=== PATIENT | male | born 1975 | race African-American/Black ===

== ENCOUNTER 2017-07-10 09:05 | Observation (INO) | payer MEDICAID ==
[~2017-07-10] VITALS: Ht 177.8 cm; Wt 78.0 kg
[~2017-07-10 09:05] MED LIST: LISI-363 PO
[2017-07-10 09:15] VITALS: BP 142/90; PULSE 92; RESP 17; TEMP 98.7; O2SAT 99
[2017-07-10] MEDS ORDERED: LIDOCAINE HCL 1% 50 ML VIAL INFIL ONE (09:15)
[2017-07-10] MEDS ORDERED: BUPIVACAINE HCL PF 0.5% 10 ML VIAL INFIL ONE (09:15)
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
[2017-07-10 09:45] LABS: AUTOMATED NEUTROPHIL # 2.8 TH/MM3 (1.8-7.7); BASOPHIL % 0.3 % (0.0-2.0); EOSINOPHIL # 0.1 TH/MM3 (0-0.4); EOSINOPHIL % 0.7 % (0.0-4.0); HEMATOCRIT 46.8 % (39.0-51.0); HEMO FLAGS DIFF FINAL; LYMPH % 56.2 % (9.0-44.0); LYMPHOCYTE # 4.4 TH/MM3 (1.0-4.8); MEAN CELL VOLUME 85.1 FL (80.0-100.0); MEAN CORPUSCULAR HEMOGLOBIN 27.4 PG (27.0-34.0); MEAN CORPUSCULAR HGB CONC 32.2 % (32.0-36.0); MONO % 7.2 % (0.0-8.0); NEUT % 35.6 % (16.0-70.0); PLATELET COUNT 263 TH/MM3 (150-450); RED BLOOD COUNT 5.51 MIL/MM3 (4.50-5.90); WHITE BLOOD COUNT 7.8 TH/MM3 (4.0-11.0)
[2017-07-10] MEDS ORDERED: NS + KCL 20 MEQ INJ 1,000 ML IV SCH (10:00)
[2017-07-10] MEDS ORDERED: ONDANSETRON HCL 4 MG/2 ML VIAL IV PUSH ONE ×2 (10:00→12:00)
[2017-07-10] MEDS ORDERED: MORPHINE SULFATE 4 MG/ML INJ IV PUSH ONE (10:00)
[2017-07-10] MEDS ORDERED: GENTAMICIN 80 MG PREMIX 100 ML IV ONE (10:00)
[2017-07-10 10:01] LABS: BICARBONATE 23.7 MEQ/L (21.0-32.0); POTASSIUM 3.2 MEQ/L (3.5-5.1)
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
--- NOTE | 2017-07-10 10:29 | RADRPT ---
EXAM DATE/TIME: 07/10/2017 10:08 [facility] COMPARISON: FINGER RIGHT 4TH DIGIT (FIT2GTS), July 10, 2017, 9:32. INDICATIONS : Post reduction 4th finger. MEDICAL HISTORY : Open fracture 4th finger SURGICAL HISTORY : None. ENCOUNTER: Subsequent ACUITY: 1 day PAIN SCORE: 10/10 LOCATION: Right 4th finger FINDINGS: Alignment is anatomic in splint. Extensive swelling is evident. Fractures noted to be open. CONCLUSION: Anatomic alignment Chris Scott MD FACR on July 10, 2017 at 10:27 Board Certified Radiologist. This report was verified electronically.
[2017-07-10] MEDS ORDERED: ONDANSETRON HCL 4 MG/2 ML VIAL IVP PRN (11:00)
[2017-07-10] MEDS ORDERED: SODIUM CHLORIDE 0.9% FLUSH 10 ML FLUSH IV FLUSH PRN (11:00)
[2017-07-10] MEDS ORDERED: LACTULOSE SYRUP 20 GM/30 ML CUP PO PRN (11:00)
[2017-07-10] MEDS ORDERED: MAGNESIUM HYDROXIDE SUSP 30 ML CUP PO PRN (11:00)
[2017-07-10] MEDS ORDERED: MORPHINE SULFATE 4 MG/ML INJ IV PUSH PRN ×2 (11:00)
[2017-07-10] MEDS ORDERED: BISACODYL 10 MG SUPP RECTAL PRN (11:00)
[2017-07-10] MEDS ORDERED: ACETAMINOPHEN 325 MG TAB PO PRN ×2 (11:00)
[2017-07-10] MEDS ORDERED: NALOXONE HCL 0.4 MG/ML AMP IV PUSH PRN (11:00)
[2017-07-10] MEDS ORDERED: ACETAMINOPHEN/HYDROcodone 325 MG/5 MG TAB PO PRN (11:00)
[2017-07-10] MEDS ORDERED: HYDROmorphone HCL PF 1 MG/ML VIAL IV PUSH PRN (11:00)
[2017-07-10] MEDS ORDERED: SENNOSIDES 8.6 MG TAB PO PRN (11:00)
[2017-07-10 11:01] LABS: APTT (PATIENT) 25.9 SEC (24.3-30.1); PROTHROMBIN TIME - PATIENT 11.4 SEC (9.8-11.6)
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
[2017-07-10 11:30] VITALS: BP 120/78
[2017-07-10 11:36] VITALS: BP 136/75; PULSE 71; RESP 16; TEMP 98.6; O2SAT 95
[2017-07-10] MEDS ORDERED: LIDOCAINE HCL 1% PF 5 ML AMPULE OTHER ONE (12:00)
[2017-07-10] MEDS ORDERED: ceFAZolin INJ 1,000 MG VIAL IV ONE ×2 (12:00→16:55)
[2017-07-10] MEDS ORDERED: NEOMYCIN/POLYMYXIN 1 ML G.U. IRRIGANT IRRIGATION ONE (12:00)
[2017-07-10] MEDS ORDERED: PROPOFOL 200 MG/20 ML AMP IV ONE (12:00)
[2017-07-10] MEDS ORDERED: GLYCOPYRROLATE 1 MG/5 ML SYRINGE IV PUSH ONE (12:00)
[2017-07-10] MEDS ORDERED: DEXAMETHASONE SOD PHOS 4 MG/ML VIAL IV ONE (12:00)
[2017-07-10] MEDS ORDERED: ENALAPRILAT 1.25 MG/ML VIAL IV PUSH PRN (12:15)
[2017-07-10] MEDS: ACETAMINOPHEN/HYDROcodone 325 MG/7.5 MG TAB PO PRN (12:26)
[2017-07-10] MEDS: SODIUM CHLOR 0.45% 1000 ML INJ 1,000 ML IV SCH ×2 (12:28→19:00)
--- NOTE | 2017-07-10 14:32 | EKG ---
Date Performed: 07/10/2017 Time Performed: 10:17:32 PTAGE: 41 years EKG: Sinus rhythm WITH MARKED SINUS ARRHYTHMIA BORDERLINE ECG NO PREVIOUS TRACING DOCTOR: Brea Kan Interpretating Date/Time 07/10/2017 14:31:40
[2017-07-10 15:16] VITALS: BP 109/58; PULSE 52; RESP 16; TEMP 97.6; O2SAT 95
[2017-07-10] MEDS ORDERED: LIDOCAINE HCL 2% 50 ML VIAL ONE (15:50)
[2017-07-10] MEDS ORDERED: BACITRACIN TOP OINT 15 GM TUBE ONE (15:50)
[2017-07-10] MEDS ORDERED: BUPIVACAINE HCL PF 0.5% 30 ML VIAL ONE (15:57)
[2017-07-10] MEDS ORDERED: MIDAZOLAM HCL 5 MG/5 ML VIAL ONE (16:22)
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
[2017-07-10] MEDS ORDERED: Vancomycin Consult Pharmacy 1 EA OTHER SCH (17:00)
[2017-07-10] MEDS: CEFEPIME INJ 2,000 MG in SODIUM CHLORIDE 0.9% INJ 100 ML IV SCH (18:00)
--- NOTE | 2017-07-10 18:46 | PD.OP ---
Operative Report Preoperative Diagnosis: (1) open dislocation distal interphalangeal joint right ring finger Postoperative Diagnosis: (1) open dislocation distal interphalangeal joint right ring finger (2) avulsion extensor tendon distal interphalangeal joint right ring finger (3) avulsion of flexor digitorum profunduns right ring finger Procedure: exploration, wash, open reduction and internal fixation with k-wire distal interphalangeal joint right ring finger repair flexor digitorum profundus avulsion right ring finger repair extensor tendon avulsion right ring finger Anesthesia: general Surgeon: Arturo Radford Program Management Specialist(s): vonda Operation and Findings: open dorsal dislocation of the distal interphalangeal joint right ring finger FDP avulsion zone I right ring finger avulsion extensor tendon zone I right ring finger transverse laceration dorsal aspect of the DIP joint right ring finger Arturo Radford MD Jul 10, 2017 18:46
[2017-07-10] MEDS ORDERED: DO NOT ADM ANY ANTICOAGULANT DRUGS PRN (19:00)
[2017-07-10] MEDS: VANCOMYCIN INJ 1,000 MG in SODIUM CHLOR 0.9% 250 ML INJ 250 ML IV SCH (19:00)
[2017-07-10] MEDS: SODIUM CHLORIDE 0.9% FLUSH 10 ML FLUSH IV FLUSH SCH (21:00)
[2017-07-10] MEDS: DOCUSATE SODIUM 50 MG/SENNA 8.6 MG TAB PO SCH (21:00)
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
[2017-07-10 22:02] VITALS: BP 116/76; PULSE 50; RESP 18; TEMP 97.5; O2SAT 97
[2017-07-11 00:49] VITALS: BP 133/76; PULSE 52; RESP 18; TEMP 98; O2SAT 98
[2017-07-11 04:47] VITALS: BP 137/93; PULSE 50; RESP 18; TEMP 97.9; O2SAT 99
[2017-07-11] MEDS: SODIUM CHLOR 0.45% 1000 ML INJ 1,000 ML IV SCH (05:35)
[2017-07-11] MEDS: CEFEPIME INJ 2,000 MG in SODIUM CHLORIDE 0.9% INJ 100 ML IV SCH (05:37)
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
[2017-07-11 07:40] LABS: AUTOMATED NEUTROPHIL # 6.4 TH/MM3 (1.8-7.7); BASOPHIL % 0.2 % (0.0-2.0); HEMATOCRIT 44.6 % (39.0-51.0); HEMO FLAGS DIFF FINAL; LYMPH % 21.8 % (9.0-44.0); LYMPHOCYTE # 1.9 TH/MM3 (1.0-4.8); MEAN CELL VOLUME 83.9 FL (80.0-100.0); MEAN CORPUSCULAR HEMOGLOBIN 27.6 PG (27.0-34.0); MEAN CORPUSCULAR HGB CONC 32.9 % (32.0-36.0); MONO % 6.2 % (0.0-8.0); NEUT % 71.8 % (16.0-70.0); PLATELET COUNT 232 TH/MM3 (150-450); RED BLOOD COUNT 5.31 MIL/MM3 (4.50-5.90); RED CELL DISTRIBUTION WIDTH 14.2 % (11.6-17.2); WHITE BLOOD COUNT 8.9 TH/MM3 (4.0-11.0)
[2017-07-11 07:54] LABS: BICARBONATE 25.2 MEQ/L (21.0-32.0); POTASSIUM 3.9 MEQ/L (3.5-5.1)
[2017-07-11 08:00] VITALS: BP 141/89; PULSE 71; RESP 18; TEMP 98.5; O2SAT 96
[2017-07-11] MEDS: DOCUSATE SODIUM 50 MG/SENNA 8.6 MG TAB PO SCH (09:00)
[2017-07-11] MEDS: VANCOMYCIN INJ 1,000 MG in SODIUM CHLOR 0.9% 250 ML INJ 250 ML IV SCH (09:18)
[2017-07-11] MEDS: ACETAMINOPHEN/HYDROcodone 325 MG/7.5 MG TAB PO PRN (09:19)
[2017-07-11] MEDS: SODIUM CHLORIDE 0.9% FLUSH 10 ML FLUSH IV FLUSH SCH (09:20)
--- NOTE | 2017-07-11 12:01 | HHI.FPPN ---
Subjective Remarks Pt seen and examined this morning. Pt has been afebrile, HR 50-71, BP 110s-140s/ 70s-90s. He reports that his pain is well controlled. He is able to move his fingers on his right hand except for the finger that was operated on. He denies chest pain, shortness of breath, abdominal discomfort, diarrhea. He has no acute concerns. Pt expresses the desire to leave as soon as possible. (Scottie Castillo MD R3) Objective Vitals Vital Signs Date Time Temp Pulse Resp B/P (MAP) Pulse Ox O2 Delivery O2 Flow Rate FiO2 07/11/17 08:00 98.5 71 18 141/89 (106) 96 07/11/17 04:47 97.9 50 18 137/93 (108) 99 07/11/17 00:49 98.0 52 18 133/76 (95) 98 07/10/17 22:02 97.5 50 18 116/76 (89) 97 07/10/17 19:15 59 19 118/81 (93) 100 Nasal Cannula 2 07/10/17 19:00 53 19 116/77 (90) 100 Nasal Cannula 2 07/10/17 18:45 97.6 54 19 111/72 (85) 100 Nasal Cannula 2 07/10/17 15:16 97.6 52 16 109/58 (75) 95 I/O 07/10/17 07/10/17 07/10/17 07/11/17 07/11/17 07/11/17 07:00 15:00 23:00 07:00 15:00 23:00 Intake Total 100 ml 1250 ml Output Total 5 ml Balance 100 ml 1245 ml Intake IV Total 100 ml 250 ml Other 1000 ml Output Estimated Blood Loss 5 ml # Voids 2 (Scottie Castillo MD R3) Result Diagram: 07/11/17 0700 07/11/17 0700 Objective Remarks GENERAL: This is a well-nourished, well-developed patient, in no apparent distress. SKIN: No rashes, ecchymoses or lesions. Cool and dry. HEENT: Atraumatic. Normocephalic. Extraocular motions intact. No scleral icterus. No injection or drainage. Nose without bleeding, purulent drainage or septal hematoma. Airway patent. NECK: Trachea midline. CARDIOVASCULAR: Regular rate and rhythm without murmurs, gallops, or rubs. RESPIRATORY: Clear to auscultation. Breath sounds equal bilaterally. No wheezes , rales, or rhonchi. GASTROINTESTINAL: Abdomen soft, non-tender, nondistended. No hepato-splenomegaly , or palpable masses. No guarding. MUSCULOSKELETAL: Right upper extremity with cast up to elbow. Pt able to move his 1st and 2nd digits, 4th digit covered with cast. Cap refill of exposed fingers <2 seconds, normal sensation. No clubbing, cyanosis, or edema of other extremities. NEUROLOGICAL: Awake and alert. Motor and sensory grossly within normal limits, motor exam of right upper extremity not preformed due to recent surgery. Normal speech. (Scottie Castillo MD R3) A/P Assessment and Plan 41 year old male with past history of HTN who was admitted for open right 4th digit fracture. Hand surgery on board. Reduced in the ED. Discharge Planning Anticipate discharge later today (Scottie Castillo MD R3) Attending Attestation Patient seen and examined with the resident team. Case reviewed and discussed Agree with plan of care as discussed with me and documented in the resident note. (Lawanda Doan MD) Problem List: (1) open dislocation distal interphalangeal joint right ring finger Plan: -Reduced preformed in the ED -Hand surgery consulted, appreciate recommendations and intervention -Patient underwent open reduction and internal fixation of the right 4th digit on 07/10/[address] Radford -Vancomycin, cefepime for osteomyelitis prophylaxis, to be transitioned to oral antibiotics at time of discharge -Patient cleared for discharge by hand surgery -Pain management with [facility] (2) Hypertension ICD Codes: I10 - Essential (primary) hypertension Plan: History of hypertension. Notes he used to take lisinopril, none recently -Currently WNL -Monitor blood pressure (3) FEN Plan: Fluids -Pt tolerating PO Electrolytes -within normal monitor and correct as needed Nutrition -Regular diet (Scottie Castillo MD R3) Problem Qualifiers (1) Hypertension: Qualified Codes: I10 - Essential (primary) hypertension Scottie Castillo MD R3 Jul 11, 2017 12:01 Lawanda Doan MD Jul 25, 2017 09:57
--- NOTE | 2017-07-11 12:52 | HHI.DCPOC ---
Discharge Care Plan Diagnosis: (1) Open fracture of finger of right hand (2) Hypertension (3) avulsion of flexor digitorum profunduns right ring finger Goals to Promote Your Health * To prevent worsening of your condition and complications * To maintain your health at the optimal level Directions to Meet Your Goals Take your medications as prescribed Follow your dietary instruction Follow activity as directed Keep your appointments as scheduled Take your immunizations and boosters as scheduled If your symptoms worsen call your PCP, if no PCP go to Urgent Care Center or Emergency Room Smoking is Dangerous to Your Health. Avoid second hand smoke Call the 24-hour hour crisis hotline for domestic abuse at Scottie Castillo MD R3 Jul 11, 2017 12:52
[2017-07-11] MEDS ORDERED: HYDR-3516 PO (13:03)
[2017-07-11] MEDS ORDERED: AMOX875T PO (13:03)
[2017-07-11] MEDS ORDERED: SULF1TAB23 PO (13:03)
[2017-07-12] MEDS ORDERED: PHARMACY ORDERED LAB ONE (07:45)
== END 2017-07-11 14:04 | disposition home or self-care (01) ==
LOC: NEPD 09:05 → NEDA 10:29 → NEPHCDU 11:34 → N06B 17:46 → NEPHCDU 20:34
PROVIDERS: ADMIT Family Medicine; ATTEND Family Medicine
DX: S62.634B Displaced fracture of distal phalanx of right ring finger, initial encounter for open fracture (principal); S66.394A Other injury of extensor muscle, fascia and tendon of right ring finger at wrist and hand level, initial encounter; I10 Essential (primary) hypertension; M25.441 Effusion, right hand; M79.644 Pain in right finger(s); Y04.0XXA Assault by unarmed brawl or fight, initial encounter; Y93.89 Activity, other specified; Z01.810 Encounter for preprocedural cardiovascular examination; Z01.818 Encounter for other preprocedural examination
CPT/HCPCS: 01830; 26370; 26418; 26746; 26755; 73140; 76000; 80048; 85025; 85610; 85730; 86850; 86900; 86901; 93005; 96361; 96365; 96366; 96367; 96368; 96375; 96376; 99285; C1713; G0378; J0690; J0692; J1100; J1170; J1580; J2250; J2270; J2405; J3010; J3370; J3480; J7050

== ENCOUNTER 2018-03-30 13:09 | Emergency (ER) | payer SELFPAY ==
[~2018-03-30 13:09] MED LIST changes: +AMOX875T PO; +HYDR-3516 PO; -LISI-363 PO; +SULF1TAB23 PO
[2018-03-30 13:13] VITALS: BP 153/96; PULSE 64; RESP 20; TEMP 98.1; O2SAT 96
[2018-03-30] MEDS ORDERED: HYDR1CRE TOPICAL (14:26)
--- NOTE | 2018-03-30 14:26 | PD ---
HPI Chief Complaint: Skin Problem Time Seen by Provider: 13:43 Travel History International Travel<30 days: No Contact w/Intl Traveler<30days: No Traveled to known affect area: No History of Present Illness HPI 42-year-old male here with skin irritation to his back 1 week. He reports he has been receiving physical therapy and they frequently use Biofreeze and heat on the back. He believes this is causing a rash. He denies fever chills. Symptom severity is mild. No aggravating or alleviating factors. PFSH Past Medical History Blood Disorders: No Cancer: No Cardiovascular Problems: Yes (HTN) Diminished Hearing: No Endocrine: No Hypertension: Yes Musculoskeletal: Yes (CHRONIC BACK PAIN) Psychiatric: No Respiratory: No Past Surgical History Abdominal Surgery: Yes (HERNIA REPAIR) Other Surgery: Yes (HERNIA) Social History Alcohol Use: No Tobacco Use: No Substance Use: Yes (MARIJUANA) Allergies-Medications (Allergen,Severity, Reaction): Coded Allergies: No Known Allergies (Verified , 01/31/16) Reported Meds & Prescriptions Reported Meds & Active Scripts Active Sulfamethoxazole-Trimethoprim 800-160 Mg Tab 1 Tab PO BID Amoxicillin 875 Mg Tab 875 Mg PO BID Hydrocodone-Acetaminophen 5-325 mg Tab 1-2 Tab PO Q6H PRN Review of Systems Except as stated in HPI: all other systems reviewed are Neg General / Constitutional: No: Fever Eyes: No: Visual changes HENT: No: Headaches Cardiovascular: No: Chest Pain or Discomfort Respiratory: No: Shortness of Breath Gastrointestinal: No: Abdominal Pain Genitourinary: No: Dysuria Physical Exam Narrative GENERAL: Alert and well-appearing 42-year-old female SKIN: Warm and dry. HEAD: Normocephalic. EYES: No injection or drainage. NECK: Supple MUSCULOSKELETAL: No cyanosis, or edema. BACK: Hyperpigmented dry rash consistent with dermatitis. No open wounds or drainage. Nontender without obvious deformity. No CVA tenderness. Data Data Last Documented VS Vital Signs Date Time Temp Pulse Resp B/P (MAP) Pulse Ox O2 Delivery O2 Flow Rate FiO2 18 13:13 98.1 64 20 153/96 (115) 96 MDM Medical Decision Making Medical Screen Exam Complete: Yes Emergency Medical Condition: Yes Differential Diagnosis Contact dermatitis, irritant dermatitis, other Narrative Course 42-year-old male here with mild case dermatitis to the back. He was instructed to discontinue use of the Biofreeze. Hydrocortisone cream to the area. Follow- up with his primary doctor Diagnosis Primary Impression: Dermatitis Referrals: Primary Care Physician Additional Instructions: Stop the use of Biofreeze Follow-up with your primary doctor Scripts Hydrocortisone Topical (Hydrocortisone Topical) 1% Cream 1 APPLIC TOPICAL BID for Rash/Inflammation, #30 GM 0 Refills Prov: Ramila James 03/30/18 Disposition: 01 DISCHARGE HOME Condition: Stable Ramila James Mar 30, 2018 14:26
== END 2018-03-30 14:37 | disposition home or self-care (01) ==
LOC: PHEFT 13:09
DX: L30.9 Dermatitis, unspecified (principal); I10 Essential (primary) hypertension; G89.29 Other chronic pain; M54.9 Dorsalgia, unspecified; F12.90 Cannabis use, unspecified, uncomplicated
CPT/HCPCS: 99283